=== PATIENT | female | born 1970 | race American Indian/Alaskan Native ===

== ENCOUNTER 2019-03-02 08:16 | Day surgery (SDC) | payer BC ==
[~2019-03-02 08:16] MED LIST: ceFAZolin/Water 2 GM/20 ML 2 GM/20 ML SYRINGE IV NR
[2019-03-02] MEDS ORDERED: fentaNYL 100 MCG/2 ML INJ IV PRN (10:46)
--- NOTE | 2019-03-02 10:47 | Anesthesia Consultation ---
Anesthesia Consult and Med Hx Date of service: 03/02/19 - Airway Anesthetic Teeth Evaluation: Good ROM Head & Neck: Adequate Mental/Hyoid Distance: Adequate Mallampati Class: Class II Intubation Access Assessment: Probably Good - Pulmonary Exam CTA: Yes - Cardiac Exam Cardiac Exam: RRR - Pre-Operative Health Status ASA Pre-Surgery Classification: ASA2 Proposed Anesthetic Plan: General - Pulmonary Hx Smoking: No Hx Respiratory Symptoms: No Hx Sleep Apnea: No (NAN PRE SCREEN LOW RISK) - Cardiovascular System Hx Hypertension: Yes (recent diagnosis) Hx Heart Attack/AMI: No - Central Nervous System CVA: No Hx Back Pain: Yes (FROM STONE) - Endocrine Hx Renal Disease: No Hx Liver Disease: No Hx Insulin Dependent Diabetes: No Hx Non-Insulin Dependent Diabetes: No Hx Thyroid Disease: No - Other Systems Hx Obesity: Yes (BMI 30.5) - Additional Comments Anesthesia Medical History Comments: No hx anesthetic complications.
--- NOTE | 2019-03-02 10:47 | Anesthesia Day of Surgery ---
Anesthesia Day of Surgery - Day of Surgery Patient Examined: Yes Patient H&P Reviewed: Yes Patient is NPO: Yes
[2019-03-02] MEDS ORDERED: LACTATED RINGERS 1,000 ML IV SCH (11:00)
[2019-03-02] MEDS ORDERED: MIDAZOLAM 2 MG/2 ML INJ IV NR (11:00)
[2019-03-02] MEDS ORDERED: LIDOCAINE MPF (2%) 20 MG/1 ML VIAL 5 ML ONE (11:15)
[2019-03-02] MEDS ORDERED: PROPOFOL 200 MG/20 ML VIAL IV ONE (11:15)
[2019-03-02] MEDS ORDERED: fentaNYL 100 MCG/2 ML INJ ONE (11:56)
[2019-03-02] MEDS ORDERED: ONDANSETRON 4 MG/2 ML INJ ONE (12:00)
[2019-03-02] MEDS ORDERED: dexAMETHasone 20 MG/5 ML VIAL ONE (12:00)
[2019-03-02] MEDS ORDERED: KETOROLAC 30 MG/1 ML INJ ONE (12:07)
[2019-03-02] MEDS ORDERED: WATER FOR IRRIG STERILE 2000 ML IR ONE (12:30)
[2019-03-02] MEDS ORDERED: HYDROcodone/ACETAMINOPHEN 5-325 MG TAB PO PRN ×2 (13:36→13:59)
[2019-03-02] MEDS ORDERED: HYDROcodone/ACETAMINOPHEN 5-325 MG TAB ONE (13:37)
--- NOTE | 2019-03-02 14:07 | Fluoroscopy Report ---
FLUOROSCOPY RETROGRADE UROGRAPHY HISTORY: Calculus of left ureter FINDINGS: 40 seconds of fluoroscopy time was provided by radiology during retrograde urography by the urologist. 9 fluoroscopic images are presented. The images demonstrate a filling defect consistent w ith an obstructing stone in the mid left ureter. The stone was removed with use of a holmium laser an d basket per the operative notes. A left ureteral stent was placed with good drainage of the left col lecting system on the final image. The right retrograde pyelogram is within normal limits. Please cor relate with the procedural report as needed. IMPRESSION: Left ureteral stone removal. Left ureteral stent placement. Signer Name: Minor Sanabria Jr, MD Signed: 03/02/2019 1:59 PM Workstation Name: [id number]
--- NOTE | 2019-03-02 16:48 | Operative Report ---
PREOPERATIVE DIAGNOSIS: A 7 mm left mid ureteral stone. POSTOPERATIVE DIAGNOSES: A 7 mm left mid ureteral stone. Impacted stone. PROCEDURE: Cystoscopy, bilateral retrograde pyelograms, left ureteroscopy, Holmium laser lithotripsy, basket stone extraction, 6-[place] 24 cm double-J stent with an external string. SURGEON: Dangelo Finley MD ANESTHESIA: General. ESTIMATED BLOOD LOSS: Minimal. FLUIDS: Crystalloid. COMPLICATIONS: No complications. INDICATIONS: This patient is a 48-year-old female presented to the office with left flank pain. She had CT of abdomen and pelvis, which revealed a 7 mm left mid ureteral stone. Discussed options. The patient agreed to proceed with surgical intervention. Risks, benefits, and complications were explained. DESCRIPTION OF PROCEDURE: The patient was taken to the operative suite, placed in a supine position. After adequate general anesthesia, placed in a dorsal lithotomy position, prepped and draped in a sterile fashion. Pancystourethroscopy was performed with a 22-[place] Storz cystoscope. She did have some mild stenosis requiring urethral dilatation. Both ureteral orifices in normal position. No tumors or stones were noted in the bladder. Bilateral retrograde pyelograms were obtained with an 8-[place] Jackson catheter and 8 mL of contrast. No filling defects or obstruction on the right. Left side, some mild proximal dilatation of the collecting system, prompting further evaluation. Two 0.035 Glidewire were placed. Rigid ureteroscopy up to the mid pelvis to the mid ureter, significant edema as well as a stone that appeared to be impacted in the wall. The stone was localized. Using a 200 micron Holmium laser, laser lithotripsy of the stone was performed starting at 4 lundy and going up to 8 lundy. Basket was used to extract the stone. Ureteroscopy up to the renal pelvis, no other fragments could be appreciated. A 6-[place] 24 cm double-J stent with an external string was left indwelling. Bladder was drained. The patient was extubated and taken to recovery room. She will go home on [place] and [email or web address]. Followup in the office. JOB# [id number] KENY/[facility]
[2019-03-02 18:00] VITALS: BP 132/72
== END 2019-03-02 08:17 | disposition home or self-care (01) ==
LOC: OR 08:16
PROVIDERS: ATTEND Urology
DX: N20.2 Calculus of kidney with calculus of ureter (principal); I10 Essential (primary) hypertension; E66.9 Obesity, unspecified; E78.00 Pure hypercholesterolemia, unspecified; Z79.899 Other long term (current) drug therapy; Z68.30 Body mass index [BMI] 30.0-30.9, adult; Z71.3 Dietary counseling and surveillance
CPT/HCPCS: 52356; 74420; A4217; C1758; C1769; C2617; J0690; J1100; J1885; J2250; J2405; J2704; J3010; J7120; Q9967